=== PATIENT | male | born 1950 | race Caucasian/White ===

== ENCOUNTER 2017-08-25 08:05 | Day surgery (SDC) | payer OTHER ==
[~2017-08-25] VITALS: Ht 188 cm; Wt 118.3 kg
[2017-08-25] MEDS ORDERED: Spironolactone1 EACH PO (08:40)
[2017-08-25] MEDS ORDERED: BENA20 PO (08:40)
[2017-08-25] MEDS ORDERED: Aspirin EC81 MG (08:41)
[2017-08-25] MEDS ORDERED: K-Tab10 MEQ PO (08:42)
[2017-08-25] MEDS ORDERED: Hair, Skin & N1 EACH PO (08:42)
== END 2017-08-25 10:28 | disposition home or self-care (01) ==
LOC: ORSCSDS 08:05
PROVIDERS: Orthopaedic Surgery
PROC: 01N50ZZ Release Median Nerve, Open Approach (ICD-10-PCS; principal; 2017-08-25 09:30)
DX: G56.01 Carpal tunnel syndrome, right upper limb (principal); I10 Essential (primary) hypertension; E11.9 Type 2 diabetes mellitus without complications; G47.33 Obstructive sleep apnea (adult) (pediatric); Z79.82 Long term (current) use of aspirin; Z79.84 Long term (current) use of oral hypoglycemic drugs; Z79.899 Other long term (current) drug therapy
CPT/HCPCS: 82947; J0360; J2250; J3010; J7120

== ENCOUNTER → 2018-08-08 | Outpatient (CLI) | payer OTHER ==
[~2018-08-08] MED LIST: Aspirin EC81 MG; BENA20 PO; Hair, Skin & N1 EACH PO; K-Tab10 MEQ PO; Spironolactone1 EACH PO
== END | disposition home or self-care (01) ==
LOC: LAB SHORT 16:18 → LAB EV 16:18
DX: R31.9 Hematuria, unspecified (principal)
CPT/HCPCS: 87086

== ENCOUNTER 2018-11-11 12:36 | Day surgery (SDC) | payer OTHER ==
[~2018-11-11 12:36] MED LIST changes: +GLIP2.5ER PO; +METF500 PO
--- NOTE | 2018-11-11 13:14 | NUR ---
11/11/18 1314 Darryl Arreaga CALL LIGLYNSEY WITHIN REACH. FAMILY AT BEDSIDE
== END 2018-11-11 14:48 | disposition home or self-care (01) ==
LOC: ORSCSDS 12:36
PROVIDERS: Surgery
PROC: 0DBH8ZX Excision of Cecum, Via Natural or Artificial Opening Endoscopic, Diagnostic (ICD-10-PCS; principal; 2018-11-11 13:45)
PROC: 0DBL8ZX Excision of Transverse Colon, Via Natural or Artificial Opening Endoscopic, Diagnostic (ICD-10-PCS; principal; 2018-11-11 13:45)
DX: Z12.11 Encounter for screening for malignant neoplasm of colon (principal); D12.0 Benign neoplasm of cecum; D12.3 Benign neoplasm of transverse colon; Z86.010 Personal history of colon polyps; I10 Essential (primary) hypertension; G47.33 Obstructive sleep apnea (adult) (pediatric); E11.9 Type 2 diabetes mellitus without complications; E66.9 Obesity, unspecified; Z68.35 Body mass index [BMI] 35.0-35.9, adult; Z79.84 Long term (current) use of oral hypoglycemic drugs; Z79.82 Long term (current) use of aspirin; Z79.899 Other long term (current) drug therapy
CPT/HCPCS: 82947; 88305; J2704; J7120